=== PATIENT | male | born 1980 | race African-American/Black ===

== ENCOUNTER 2016-07-06 10:27 | Emergency (ER) | payer MEDICAID ==
[~2016-07-06] VITALS: Ht 167.6 cm; Wt 72.6 kg
[~2016-07-06 10:27] MED LIST: NKM
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
[2016-07-06 11:30] VITALS: BP 148/98
[2016-07-06] MEDS ORDERED: IBUPROFEN600 MG ORAL (11:38)
[2016-07-06] MEDS ORDERED: ROBAXIN-750750 MG PO (11:38)
[2016-07-06 12:05] VITALS: BP 130/70
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
== END 2016-07-06 12:08 | disposition home or self-care (01) ==
LOC: EDBD 10:27 → EMR 11:30
DX: S50.01XA Contusion of right elbow, initial encounter (principal); V09.9XXA Pedestrian injured in unspecified transport accident, initial encounter; Y93.55 Activity, bike riding; Y92.410 Unspecified street and highway as the place of occurrence of the external cause; S50.311A Abrasion of right elbow, initial encounter
CPT/HCPCS: 99283